=== PATIENT | male | born 1975 ===

== ENCOUNTER 2018-09-25 08:04 | Day surgery (SDC) | payer BC ==
[~2018-09-25] VITALS: Ht 167.6 cm; Wt 82.8 kg
[~2018-09-25 08:04] MED LIST: ACID REDUCER 1150 MG PO; ACYC200 PO; Align4 MG PO; Zantac150 MG PO
--- NOTE | 2018-09-25 08:56 | NUR ---
09/25/18 0856 India Martines CALL LIGHT WITHIN REACH. TWO IV ATTEMPTS, FIRST ATTEMPT UNSUCCESSFUL, PT FELT LIGHT HEADED. SECOND ATTEMPT SUCCESSFUL.
--- NOTE | 2018-09-25 09:54 | NUR ---
09/25/18 0953 Rosita Emerson V PT STILL APPEARS SLEEPY UPON ARRIVING TO SDU. PT DOES OPEN EYES TO VERBAL STIMULATION BUT DOES NOT RESPOND TO QUESTIONS.
== END 2018-09-25 10:05 | disposition home or self-care (01) ==
LOC: ORSCSDS 08:04
PROVIDERS: Internal Medicine Gastroenterology
PROC: 0DB58ZX Excision of Esophagus, Via Natural or Artificial Opening Endoscopic, Diagnostic (ICD-10-PCS; principal; 2018-09-25 09:30)
PROC: 0DB68ZX Excision of Stomach, Via Natural or Artificial Opening Endoscopic, Diagnostic (ICD-10-PCS; principal; 2018-09-25 09:30)
DX: K21.0 Gastro-esophageal reflux disease with esophagitis (principal); K44.9 Diaphragmatic hernia without obstruction or gangrene; R19.4 Change in bowel habit; Z87.891 Personal history of nicotine dependence; E66.9 Obesity, unspecified; Z68.30 Body mass index [BMI] 30.0-30.9, adult; Z79.899 Other long term (current) drug therapy
CPT/HCPCS: 88305; 88312; 88342; J2250; J2704; J7120